=== PATIENT | male | born 1990 | race Hispanic/Latino ===

== ENCOUNTER 2025-09-14 21:21 | Emergency (ER) | payer OTHER ==
[2025-09-14] MEDS ORDERED: Acetaminophen 500 MG TAB ONE (22:07)
[2025-09-14] MEDS ORDERED: Ketorolac Tromethamine 30 MG (1 mL) VIAL ONE (22:08)
== END 2025-09-14 23:22 ==
LOC: ERS 21:21 → EEVIPCON 21:21 → ERS 23:22
DX: S39.012A Strain of muscle, fascia and tendon of lower back, initial encounter (principal); I10 Essential (primary) hypertension; Z55.6 Problems related to health literacy; X50.1XXA Overexertion from prolonged static or awkward postures, initial encounter
CPT/HCPCS: 96372; 99283; J1885